=== PATIENT | male | born 1985 | race African-American/Black ===

== ENCOUNTER 2016-10-23 19:03 | Emergency (ER) | payer OTHER ==
[~2016-10-23] VITALS: Ht 188 cm; Wt 77.1 kg
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
--- NOTE | 2016-10-23 20:21 | RADIOLOGY REPORT ---
EXAMINATION: XR SHOULDER, LEFT CLINICAL INFORMATION: Pain, injury. COMPARISON: None TECHNIQUE: AP external rotation, Grashey, scapular Y, and axillary views of the left shoulder. FINDINGS: There is inferior subluxation of the right humeral head suggesting a moderate to large joint effusion. There is transverse lucency identified through the coracoid process only on the frontal view suggesting a nondisplaced fracture. Orthopedic consultation should be considered. IMPRESSION: Joint effusion with probable coracoid fracture.
[2016-10-23] MEDS ORDERED: ULTRAM50 M1 PO (21:11)
[2016-10-23] MEDS ORDERED: IBUPROFEN600 M1 PO (21:11)
[2016-10-23 21:36] VITALS: BP 144/88
== END 2016-10-23 21:39 ==
LOC: ERH 19:03
DX: S42.135A Nondisplaced fracture of coracoid process, left shoulder, initial encounter for closed fracture (principal); S43.402A Unspecified sprain of left shoulder joint, initial encounter; M25.412 Effusion, left shoulder; V28.4XXA Motorcycle driver injured in noncollision transport accident in traffic accident, initial encounter; Y92.488 Other paved roadways as the place of occurrence of the external cause
CPT/HCPCS: 73030-LT; 96372; J1885